=== PATIENT | female | born 1985 | race Caucasian/White ===

== ENCOUNTER → 2019-08-25 09:39 | Outpatient (BNVA) | payer OTHER, SELFPAY | PROVIDERS: Family Provider General Practice; PCP General Practice; Visit Provider Nurse Practitioner | DX: F90.2 Attention-deficit hyperactivity disorder, combined type (principal) | CPT/HCPCS: 99213 ==

== ENCOUNTER → 2019-11-17 08:34 | Outpatient (BNVA) | payer OTHER, SELFPAY | PROVIDERS: Family Provider General Practice; PCP General Practice; Visit Provider Nurse Practitioner | DX: F90.2 Attention-deficit hyperactivity disorder, combined type (principal) | CPT/HCPCS: 99213 ==

== ENCOUNTER → 2020-02-07 07:51 | Outpatient (BNVA) | payer OTHER, SELFPAY | PROVIDERS: Family Provider General Practice; PCP General Practice; Visit Provider Nurse Practitioner | DX: F90.2 Attention-deficit hyperactivity disorder, combined type (principal) | CPT/HCPCS: 99213 ==

== ENCOUNTER → 2020-05-03 07:55 | Outpatient (BNVA) | payer OTHER, SELFPAY | PROVIDERS: PCP Electrodiagnostic Medicine; Visit Provider Nurse Practitioner | DX: F90.2 Attention-deficit hyperactivity disorder, combined type (principal) | CPT/HCPCS: 99213 ==

== ENCOUNTER → 2020-08-04 07:45 | Outpatient (BNVA) | payer OTHER, SELFPAY | PROVIDERS: PCP Electrodiagnostic Medicine; Visit Provider Nurse Practitioner | DX: F90.2 Attention-deficit hyperactivity disorder, combined type (principal) | CPT/HCPCS: 99213 ==

== ENCOUNTER → 2020-11-17 07:27 | Outpatient (BNVA) | payer OTHER, SELFPAY | PROVIDERS: PCP Electrodiagnostic Medicine; Visit Provider Nurse Practitioner | DX: F90.2 Attention-deficit hyperactivity disorder, combined type (principal) | CPT/HCPCS: 99214 ==

== ENCOUNTER → 2021-12-18 13:18 | Outpatient (BNVA) | payer BC, SELFPAY | PROVIDERS: PCP Electrodiagnostic Medicine; Visit Provider Obstetrics & Gynecology | DX: Z11.3 Encounter for screening for infections with a predominantly sexual mode of transmission (principal); N90.89 Other specified noninflammatory disorders of vulva and perineum; Z76.89 Persons encountering health services in other specified circumstances | CPT/HCPCS: 86592; 86695; 86696; 86787; 86803; 87340; 87491; 87530; 87591; 87661; 87806 ==

== ENCOUNTER → 2023-09-25 12:00 | Outpatient (BNVA) | payer OTHER, SELFPAY | PROVIDERS: PCP Electrodiagnostic Medicine; Visit Provider Nurse Practitioner Women's Health | DX: R53.83 Other fatigue (principal); R41.89 Other symptoms and signs involving cognitive functions and awareness | CPT/HCPCS: 82306; 82607; 84439; 84443; 85025 ==

== ENCOUNTER → 2024-04-29 12:05 | Outpatient (BNVA) | payer OTHER, SELFPAY | PROVIDERS: PCP Electrodiagnostic Medicine; Visit Provider Nurse Practitioner Psychiatric/Mental Health | DX: Z79.899 Other long term (current) drug therapy (principal) | CPT/HCPCS: 80306; 81025 ==